=== PATIENT | female | born 1970 | race American Indian/Alaskan Native ===

== ENCOUNTER 2016-07-12 09:40 | Outpatient (CLI) | payer MEDICARE ==
--- NOTE | 2016-07-12 13:47 | Mammography Report ---
BILATERAL DIGITAL SCREENING MAMMOGRAM with CAD: 07/12/16 09:40:00 CLINICAL: Routine screening. COMPARISON:06/28/14 FINDINGS: The breasts are heterogeneously dense, which may obscure small masses. A new right asymmetry requires additional imaging.No architectural distortion or suspicious calcifications.The left breast is negative. IMPRESSION: Right asymmetry requiring further workup. BI-RADS CATEGORY: 0 -- Additional Imaging Evaluation Required RECOMMENDATION: Recall for right spot compression MLO view and right breast ultrasound if needed. ACR BI-RADS MAMMOGRAPHIC CODES: 0 = Needs additional imaging evaluation; 1 = Negative; 2 = Benign; 3 = Probably benign; 4 = Suspicious; 5 = Malignant; 6 = Known biopsy-proven malignancy COMMENT: 1. Dense breast tissue, i.e., adenosis, fibrocystic changes, etc., may obscure an underlying neoplasm. 2. Approximately 10% of cancers are not detected with mammography. 3. A negative mammography report should not delay biopsy if a clinically suspicious mass is present. COMMENT: Patient follow-up letters are generated via our [email or web address] application.
== END 2016-07-12 09:41 | disposition home or self-care (01) ==
LOC: SPVWC 09:40
PROVIDERS: ATTEND Internal Medicine
DX: Z12.31 Encounter for screening mammogram for malignant neoplasm of breast (principal)
CPT/HCPCS: 77067; G0202

== ENCOUNTER 2016-08-02 08:43 | Outpatient (CLI) | payer MEDICARE ==
--- NOTE | 2016-08-02 09:58 | Mammography Report ---
Diagnostic right mammogram and targeted right breast ultrasound. History: Recall for right asymmetry. Findings: Spot compression image does not definitely confirm the presence of the previous the noted density although the breast parenchyma is very dense in the region of interest. Therefore targeted breast ultrasound was performed. At the 9:00 position, 6 cm from the nipple there is an ovoid shaped hypoechoic mass measuring 1.2 x 0.5 cm. The margins are circumscribed and there is no associated acoustic shadowing. Impression: Solid mass at the 9:00 position of the right breast measuring 1.2 x 0.5 cm. This does not represent the previous the noted mammographic density. The sonographic features are benign, and this may represent a fibroadenoma. BI-RADS code: 3. Recommendation: A six-month followup right breast ultrasound is recommended to establish stability.
== END 2016-08-02 08:44 | disposition home or self-care (01) ==
LOC: SPVWC 08:43
PROVIDERS: ATTEND Internal Medicine
DX: N63 Unspecified lump in breast (principal)
CPT/HCPCS: 76642; G0206

== ENCOUNTER 2017-09-02 12:32 | Outpatient (CLI) | payer MEDICARE ==
--- NOTE | 2017-09-02 13:40 | Mammography Report ---
BILATERAL DIGITAL DIAGNOSTIC MAMMOGRAM with CAD and RIGHT BREAST ULTRASOUND: 09/02/17 CLINICAL: Followup right breast mass. Routine screening of the left breast. COMPARISON:07/12/16 and 08/02/16 mammograms and 08/02/16 and 02/27/17 right breast ultrasound FINDINGS: The breasts are heterogeneously dense, which may obscure small masses.No mammographic mass, architectural distortion or suspicious calcifications. Ultrasound of the right breast demonstrated a stable oval solid hypoechoic mass at 9 o'clock 6 cm from the nipple. It measures 1.2 x 1.1 x 0.5 cm. IMPRESSION: A stable probably benign right breast mass at 9 o'clock. Negative left breast. BI-RADS CATEGORY: 3 - - Probably Benign RECOMMENDATION: Six-month followup right breast ultrasound. ACR BI-RADS MAMMOGRAPHIC CODES: 0 = Needs additional imaging evaluation; 1 = Negative; 2 = Benign; 3 = Probably benign; 4 = Suspicious; 5 = Malignant; 6 = Known biopsy-proven malignancy COMMENT: 1. Dense breast tissue, i.e., adenosis, fibrocystic changes, etc., may obscure an underlying neoplasm. 2. Approximately 10% of cancers are not detected with mammography. 3. A negative mammography report should not delay biopsy if a clinically suspicious mass is present. COMMENT: Patient follow-up letters are generated by our [employer] application.
== END 2017-09-02 12:33 | disposition home or self-care (01) ==
LOC: SPVWC 12:32
PROVIDERS: ATTEND Internal Medicine
DX: R92.8 Other abnormal and inconclusive findings on diagnostic imaging of breast (principal)
CPT/HCPCS: 77066

== ENCOUNTER 2018-11-04 13:19 | Outpatient (CLI) | payer MEDICARE ==
--- NOTE | 2018-11-04 14:47 | Mammography Report ---
BILATERAL DIGITAL DIAGNOSTIC MAMMOGRAM WITH CAD 11/04/2018 LEFT BREAST ULTRASOUND INDICATION: Palpable lump TECHNIQUE: Digital bilateral mammographic imaging was performed. This examination was interpreted wi th the benefit of Computer-Aided Detection (CAD) analysis. COMPARISON: 09/02/2017 FINDINGS: Breast Density: The breasts are heterogeneously dense, which may obscure small masses. There is no evidence of mass, suspicious calcifications or architectural distortion in either breast. Ultrasound Findings: Targeted ultrasound evaluation was performed of the area of interest. The ger[address] st was scanned from 11-1 o'clock and demonstrated normal fibroglandular structures. No mass, cyst or shadowing. IMPRESSION: Negative mammogram and negative left breast ultrasound. Recommend clinical follow-up and routine mammographic screening. BI-RADS Category 2: Benign. Recommend routine screening mammography in one year A "normal" or negative report should not discourage follow up or biopsy of a clinically significant f inding. A written summary of these findings will be mailed to the patient. The patient will be entered into a mammography reporting system which will generate a reminder letter for the patient's next appointmen t at the appropriate interval. FURTHER INFORMATION: According to the [employer], yearly mammograms are recommend ed starting at age 40 and continuing as long as a woman is in good health. Breast MRI is recommended for women with an approximately 20-25% or greater lifetime risk of breast cancer, including women wi th a strong family history of breast or ovarian cancer and women who have been treated for Hodgkin's disease. Signer Name: Juan F Hernández MD Signed: 11/04/2018 2:43 PM Workstation Name: [id number]
== END 2018-11-04 13:20 | disposition home or self-care (01) ==
LOC: SPVWC 13:19
PROVIDERS: ATTEND Internal Medicine
DX: D24.1 Benign neoplasm of right breast (principal); D24.2 Benign neoplasm of left breast
CPT/HCPCS: 77066

== ENCOUNTER 2019-10-05 13:42 | Emergency (ER) | payer MEDICARE ==
[2019-10-05 13:57] VITALS: BP 130/71
[2019-10-05] MEDS ORDERED: SODIUM CHLORIDE 0.9% 1000 ML 1,000 ML IV ONE (14:14)
--- NOTE | 2019-10-05 14:23 | Emergency Department Report ---
HPI - General Chief Complaint: Altered Mental Status Time Seen by Provider: 10/05/19 14:00 - HPI HPI: 48-year-old female presents to the emergency department via EMS from a [facility] with complaint of a syncopal episode. Patient says that she was standing there talking to 1 of the employees when she started feeling lightheaded and then "passed out." However the patient did not actually lose consciousness and says that she remembers hearing them talking to her and helping her back up but she felt too weak to respond. At the time of my examination the patient is awake, alert, oriented and just complains of some generalized weakness and fatigue. She has a history of GERD, previous gastric bypass, and says that she is currently being evaluated for adrenal insufficiency. Primary care physician is Dr. Mujica. The patient also underwent a recent EGD with dilation of the esophagus. ED Past Medical Hx - Past Medical History Previous Medical History?: Yes Hx Hypertension: (hypotension) Hx GERD: Yes Additional medical history: gastric bipass - Surgical History Past Surgical History?: Yes Additional Surgical History: gastric bipass - Social History Smoking Status: Former Smoker Substance Use Type: None ED Review of Systems ROS: Stated complaint: SYNCOPE Other details as noted in HPI Comment: All other systems reviewed and negative Constitutional: weakness. denies: chills, fever Eyes: denies: eye pain, vision change ENT: denies: ear pain, throat pain Respiratory: denies: cough, shortness of breath Cardiovascular: syncope. denies: chest pain Gastrointestinal: denies: abdominal pain, vomiting Genitourinary: denies: dysuria, discharge Musculoskeletal: denies: back pain, arthralgia Skin: denies: rash, lesions Neurological: weakness, other (Lightheadedness) Physical Exam - Physical Exam Vital Signs: Vital Signs 10/05/19 10/05/19 13:53 14:10 Temperature 98.4 F Pulse Rate 76 Respiratory 12 18 Rate Blood Pressure 130/71 Blood Pressure 130/71 [Right] O2 Sat by Pulse 99 100 Oximetry Physical Exam: GENERAL: The patient is well-developed well-nourished. HENT: Normocephalic. Atraumatic. Patient has moist mucous membranes. EYES: Extraocular motions are intact. No nystagmus. NECK: Supple. Trachea is midline. CHEST/LUNGS: Clear to auscultation. There is no respiratory distress noted. HEART/CARDIOVASCULAR: Regular. There is no tachycardia. ABDOMEN: Abdomen is soft, nontender. Patient has normal bowel sounds. There is no abdominal distention. SKIN: Skin is warm and dry. NEURO: The patient is awake, alert, and oriented. The patient is cooperative. The patient has no focal neurologic deficits. Normal speech. Cranial nerves II through XII grossly intact. No pronator drift. No dysmetria. MUSCULOSKELETAL: There is no tenderness or deformity. There is no limitation range of motion. ED Course Vital Signs 10/05/19 10/05/19 13:53 14:10 Temperature 98.4 F Pulse Rate 76 Respiratory 12 18 Rate Blood Pressure 130/71 Blood Pressure 130/71 [Right] O2 Sat by Pulse 99 100 Oximetry - Reevaluation(s) Reevaluation #1: 10/06/19 12:26 Lab Results 10/05/19 10/05/19 10/05/19 Range/Units 14:14 14:15 14:50 WBC 5.0 (4.5-11.0) K/mm3 RBC 4.09 (3.65-5.03) M/mm3 Hgb 10.5 (10.1-14.3) gm/dl Hct 32.9 (30.3-42.9) % MCV 80 (79-97) fl MCH 26 L (28-32) pg MCHC 32 (30-34) % RDW 19.2 H (13.2-15.2) % Plt Count 228 (140-440) K/mm3 Lymph % (Auto) 24.7 (13.4-35.0) % [place] % (Auto) 8.4 H (0.0-7.3) % Eos % (Auto) 0.6 (0.0-4.3) % Baso % (Auto) 0.4 (0.0-1.8) % Lymph # 1.2 (1.2-5.4) K/mm3 [place] # 0.4 (0.0-0.8) K/mm3 Eos # 0.0 (0.0-0.4) K/mm3 Baso # 0.0 (0.0-0.1) K/mm3 Seg Neutrophils % 65.9 (40.0-70.0) % Seg Neutrophils # 3.3 (1.8-7.7) K/mm3 Sodium 141 (137-145) mmol/L Potassium 4.7 (3.6-5.0) mmol/L Chloride 103.9 (98-107) mmol/L Carbon Dioxide 24 (22-30) mmol/L Anion Gap 18 mmol/L BUN 16 (7-17) mg/dL Creatinine 0.7 (0.7-1.2) mg/dL Estimated GFR > 60 ml/min BUN/Creatinine Ratio 23 % Glucose 96 (65-100) mg/dL Calcium 7.9 L (8.4-10.2) mg/dL Total Bilirubin 0.30 (0.1-1.2) mg/dL AST 24 (5-40) units/L ALT 14 (7-56) units/L Alkaline Phosphatase 79 (35-129) units/L Troponin T < 0.010 (0.00-0.029) ng/mL Total Protein 7.5 (6.3-8.2) g/dL Albumin 3.6 L (3.9-5) g/dL Albumin/Globulin Ratio 0.9 % TSH (0.270-4.200) mlU/mL Urine Color (Yellow) Urine Turbidity (Clear) Urine pH (5.0-7.0) Ur Specific [place] (1.003-1.030) Urine Protein (Negative) mg/dL Urine Glucose (UA) (Negative) mg/dL Urine Ketones (Negative) mg/dL Urine Blood (Negative) Urine Nitrite (Negative) Urine Bilirubin (Negative) Urine Ictotest (Negative) Urine Urobilinogen (<2.0) mg/dL Ur Leukocyte Esterase (Negative) Urine WBC (Auto) (0.0-6.0) /HPF Urine RBC (Auto) (0.0-6.0) /HPF U Epithel Cells (Auto) (0-13.0) /HPF Urine Bacteria (Auto) (Negative) /HPF Hyaline Casts /LPF Urine Mucus /HPF Plasma/Serum Alcohol < 0.01 (0-0.07) % 10/05/19 10/05/19 Range/Units 14:50 15:03 WBC (4.5-11.0) K/mm3 RBC (3.65-5.03) M/mm3 Hgb (10.1-14.3) gm/dl Hct (30.3-42.9) % MCV (79-97) fl MCH (28-32) pg MCHC (30-34) % RDW (13.2-15.2) % Plt Count (140-440) K/mm3 Lymph % (Auto) (13.4-35.0) % [place] % (Auto) (0.0-7.3) % Eos % (Auto) (0.0-4.3) % Baso % (Auto) (0.0-1.8) % Lymph # (1.2-5.4) K/mm3 [place] # (0.0-0.8) K/mm3 Eos # (0.0-0.4) K/mm3 Baso # (0.0-0.1) K/mm3 Seg Neutrophils % (40.0-70.0) % Seg Neutrophils # (1.8-7.7) K/mm3 Sodium (137-145) mmol/L Potassium (3.6-5.0) mmol/L Chloride (98-107) mmol/L Carbon Dioxide (22-30) mmol/L Anion Gap mmol/L BUN (7-17) mg/dL Creatinine (0.7-1.2) mg/dL Estimated GFR ml/min BUN/Creatinine Ratio % Glucose (65-100) mg/dL Calcium (8.4-10.2) mg/dL Total Bilirubin (0.1-1.2) mg/dL AST (5-40) units/L ALT (7-56) units/L Alkaline Phosphatase (35-129) units/L Troponin T (0.00-0.029) ng/mL Total Protein (6.3-8.2) g/dL Albumin (3.9-5) g/dL Albumin/Globulin Ratio % TSH 1.600 (0.270-4.200) mlU/mL Urine Color [place] (Yellow) Urine Turbidity Clear (Clear) Urine pH 5.0 (5.0-7.0) Ur Specific [place] 1.033 H (1.003-1.030) Urine Protein 30 mg/dl (Negative) mg/dL Urine Glucose (UA) Neg (Negative) mg/dL Urine Ketones Tr (Negative) mg/dL Urine Blood Neg (Negative) Urine Nitrite Neg (Negative) Urine Bilirubin Sm (Negative) Urine Ictotest Negative (Negative) Urine Urobilinogen 2.0 (<2.0) mg/dL Ur Leukocyte Esterase Tr (Negative) Urine WBC (Auto) 6.0 (0.0-6.0) /HPF Urine RBC (Auto) 5.0 (0.0-6.0) /HPF U Epithel Cells (Auto) 2.0 (0-13.0) /HPF Urine Bacteria (Auto) 1+ (Negative) /HPF Hyaline Casts 2 /LPF Urine Mucus 3+ /HPF Plasma/Serum Alcohol (0-0.07) % ED Medical Decision Making - Lab Data Result diagrams: 10/05/19 14:14 10/05/19 14:50 - EKG Data -: EKG Interpreted by [facility] EKG shows normal: sinus rhythm, axis, intervals, QRS complexes, ST-T waves Rate: normal - EKG Data When compared to previous EKG there are: previous EKG unavailable Interpretation: normal EKG - Radiology Data Radiology results: report reviewed NONENHANCED CT SCAN OF THE HEAD: INDICATION / CLINICAL INFORMATION: 48 years Female; MAIN: Syncope, HBP. TECHNIQUE: Routine CT head without contrast. All CT scans at this location are performed using CT dose reduction for ALARA by means of automated exposure control. COMPARISON: None. FINDINGS: BRAIN / INTRACRANIAL CONTENTS: No acute hemorrhage, mass effect, midline shift, hydrocephalus, or acute, large territorial infarct. Encephalomalacia in the right superior frontal gyrus extending towards the right frontal horn; small area of encephalomalacia in the right caudate head and neck; focal chronic white matter lesion in the right centrum semiovale wall are Chronic small vessel disease CRANIOCERVICAL J UNCTION: No significant abnormality. ORBITS: No significant abnormality of visualized orbits. SINUSES / MASTOIDS: Mucosal thickening in the left maxillary sinus; postsurgical changes along the anterior wall of both maxilla ADDITIONAL FINDINGS: None. Impression: No focal acute parenchymal lesion in the brain - Medical Decision Making This patient presents to the emergency department with some type of episode of syncope versus near syncope. She got very lightheaded and dizzy and fell to the ground but says that she did not completely lose consciousness. On examination she appears fatigued but otherwise is oriented, alert, and she does not have any focal, motor or sensory deficits, and her cranial nerves are intact. A CT scan of the head was completed that does not show any bleed, shift, mass, ischemia, or any other acute process. EKG does not show any morphology consistent with ST elevation CT or any significant dysrhythmia. Her labs have been unremarkable including CBC, metabolic panel, troponin, thyroid function and urinalysis. The patient was positive on orthostatics as she had a almost 20 point drop in her systolic blood pressure from sitting to standing. She was given a liter of IV fluid resuscitation and upon reevaluation she says she is feeling greatly improved. The patient was able to get up and ambulate around the emergency department and both appears and feels stable. Her vital signs have been stable throughout her ED course. For all these reasons she appears safe for discharge home at this time. She has been instructed to follow-up with her primary care physician and will return to the ER with any worsening of her symptoms or any acute distress. Critical Care Time: No Critical care attestation.: If time is entered above; I have spent that time in minutes in the direct care of this critically ill patient, excluding procedure time. ED Disposition Clinical Impression: Orthostatic lightheadedness Syncope Qualifiers: Syncope type: unspecified Qualified Code(s): R55 - Syncope and collapse Disposition: DC-01 TO HOME OR SELFCARE Is pt being admited?: No Condition: Stable Instructions: Syncope (ED), Lightheadedness (ED), Dizziness (ED) Additional Instructions: Please follow-up with your primary care physician in the next few days. Return to the emergency department with any worsening of your symptoms, any further episodes of passing out, or with any acute distress. Referrals: MILTON HART MD [Primary Care Provider] - 2-3 Days Time of Disposition: 18:20
[2019-10-05 15:08] LABS: Basophils % (Auto) 0.4 % (0.0-1.8); Eosinophils % (Auto) 0.6 % (0.0-4.3); Hematocrit 32.9 % (30.3-42.9); Hemoglobin 10.5 gm/dl (10.1-14.3); Lymphocytes # (Auto) 1.2 K/mm3 (1.2-5.4); Lymphocytes % (Auto) 24.7 % (13.4-35.0); Mean Corpuscular HGB Conc 32 % (30-34); Mean Corpuscular Volume 80 fl (79-97); Monocytes # (Auto) 0.4 K/mm3 (0.0-0.8); Monocytes % (Auto) 8.4 % (0.0-7.3); Platelet Count 228 K/mm3 (140-440); Red Blood Count 4.09 M/mm3 (3.65-5.03); Red Cell Distribution Width 19.2 % (13.2-15.2)
--- NOTE | 2019-10-05 15:11 | Cat Scan Report ---
NONENHANCED CT SCAN OF THE HEAD: INDICATION / CLINICAL INFORMATION: 48 years Female; MAIN: Syncope, HBP. TECHNIQUE: Routine CT head without contrast. All CT scans at this location are performed using CT dos e reduction for ALARA by means of automated exposure control. COMPARISON: None. FINDINGS: BRAIN / INTRACRANIAL CONTENTS: No acute hemorrhage, mass effect, midline shift, hydrocephalus, or acu te, large territorial infarct. Encephalomalacia in the right superior frontal gyrus extending towards the right frontal horn; small area of encephalomalacia in the right caudate head and neck; focal chr onic white matter lesion in the right centrum semiovale wall are Chronic small vessel disease CRANIOCERVICAL JUNCTION: No significant abnormality. ORBITS: No significant abnormality of visualized orbits. SINUSES / MASTOIDS: Mucosal thickening in the left maxillary sinus; postsurgical changes along the an terior wall of both maxilla ADDITIONAL FINDINGS: None. Impression: No focal acute parenchymal lesion in the brain Signer Name: Dotty Ziegler MD Signed: 10/05/2019 3:06 PM Workstation Name: [id number]
[2019-10-05 15:23] LABS: Bacteria,Urine 1+ /HPF (Negative); Bilirubin,Urine SM (Negative); Blood,Urine NEG (Negative); Color,Urine Amber (Yellow); Hyaline Casts,Urine 2 /LPF; Mucus,Urine 3+ /HPF
[2019-10-05 15:24] LABS: Alanine Aminotransferase 14 units/L (7-56); Albumin 3.6 g/dL (3.9-5); BUN/Creatinine Ratio 23; Blood Urea Nitrogen 16 mg/dL (7-17); Calcium 7.9 mg/dL (8.4-10.2); Hemolysis Index 43
[2019-10-05 15:38] LABS: Ictotest,Urine Negative (Negative)
== END 2019-10-05 18:27 | disposition home or self-care (01) ==
LOC: ED 13:42
DX: R55 Syncope and collapse (principal); R42 Dizziness and giddiness; I10 Essential (primary) hypertension; K21.9 Gastro-esophageal reflux disease without esophagitis; Z98.890 Other specified postprocedural states; Z87.891 Personal history of nicotine dependence
CPT/HCPCS: 36415; 70450; 80053; 81001; 84443; 84484; 85025; 93005; 96360; 99285; J7030; 80320; G0480

== ENCOUNTER 2020-05-16 13:58 | Outpatient (CLI) | payer MEDICARE ==
--- NOTE | 2020-05-17 08:19 | Mammography Report ---
DIGITAL SCREENING MAMMOGRAM WITH CAD, 05/16/2020 INDICATION: Routine screening mammography. TECHNIQUE: Digital bilateral 2D mammography was obtained in the craniocaudal and mediolateral obliq ue projections. This examination was interpreted with the benefit of Computer-Aided Detection analysi s. COMPARISON: 06/28/2014. FINDINGS: Breast Density: The breasts are heterogeneously dense, which may obscure small masses. There is no evidence of dominant mass, suspicious calcifications or architectural distortion in eithe r breast. IMPRESSION: Follow up recommendation: Routine yearly BI-RADS Category 1: Negative. A "normal" or negative report should not discourage follow up or biopsy of a clinically significant f inding. A written summary of these findings will be mailed to the patient. The patient will be entered into a mammography reporting system which will generate a reminder letter for the patient's next appointmen t at the appropriate interval. The [employer] recommends yearly mammograms starting at age 40 and continuing as l sully as a woman is in good health. Breast MRI is recommended for women with an approximate 20-25% or greater lifetime risk of breast cancer, including women with a strong family history of breast or ova zaira cancer or who have been treated for Hodgkin's disease. Signer Name: Otilio Mascorro MD Signed: 05/17/2020 8:14 AM Workstation Name: [id number]
== END 2020-05-16 13:59 | disposition home or self-care (01) ==
LOC: SPVWC 13:58
PROVIDERS: ATTEND Family Medicine
DX: Z12.31 Encounter for screening mammogram for malignant neoplasm of breast (principal)
CPT/HCPCS: 77067